=== PATIENT | female | born 1965 | race Caucasian/White ===

== ENCOUNTER → 2018-03-12 | Outpatient (CLI) | payer OTHER ==
--- NOTE | 2018-03-12 09:19 | RAD ---
EXAM: Right hip and pelvis, 3 views. HISTORY: Pain. COMPARISON: None. FINDINGS: A frontal view of the pelvis and frontal and frog-leg views of the right hip are obtained. There is no fracture, dislocation or subluxation. There is degenerative change at the lower lumbar levels. There is mild subchondral sclerosis involving the sacroiliac joints. IMPRESSION: No acute osseous finding. Electronically signed by: July Ayala MD (03/12/2018 9:15 AM) [place] [id number]
== END | disposition home or self-care (01) ==
LOC: RAD 08:12
PROVIDERS: ATTEND Physician Assistant Medical
DX: M25.551 Pain in right hip (principal); M47.896 Other spondylosis, lumbar region; M53.3 Sacrococcygeal disorders, not elsewhere classified
CPT/HCPCS: 73502